=== PATIENT | female | born 1965 | race Caucasian/White ===

== ENCOUNTER → 2017-10-31 | Day surgery (SDC) | payer OTHER ==
--- NOTE | 2017-11-01 13:49 | PATH ---
Surgical Pathology Report Patient Name: BELÉN CHUNG [facility]. Rec. #: [id number] /Age/Gender: 1965 (Age: 51) / F Account: [id number] Location: [facility] Taken: 10/31/2017 Received: 10/31/2017 Reported: 11/01/2017 Physicians: Gerard Jenkins M.D. Specimen(s) Received A: LEFT BREAST SPECIMEN WITH CALCIFICATIONS B: LEFT BREAST SPECIMEN WITHOUT CALCIFICATIONS Clinical History Nonpalpable lesion Mammographic findings: Microcalcification, suspicious Final Diagnosis A. breast, left, with calcifications, stereotactic biopsy: Benign breast tissue showing fibroadenoma with sclerosis, fibrocystic change and associated calcifications. B. breast, left, without calcifications, stereotactic biopsy: Benign breast tissue showing fibroadenoma with sclerosis, fibrocystic change and associated calcifications. Electronically Signed Naomi Wilde M.D. Gross Description A. Received in formalin labeled "left breast with calcifications," are 9 peres-yellow, cylindrical portions of fibroadipose tissue ranging from 0.5-2.4 cm in length and averaging 0.2 cm in diameter. The specimens are entirely submitted in 2 cassettes. B. Received in formalin labeled "left breast without calcifications," are 5 peres-yellow, cylindrical portions of fibroadipose tissue ranging from 0.7-2.4 cm in length and averaging 0.3 cm in diameter. The specimens are submitted in toto in one cassette. Time to formalin fixation: 5 minutes Total formalin fixation time: Approximately 6 hours. 10/31/2017 saudi10/31/2017
== END | disposition home or self-care (01) ==
LOC: FMAMMOTONE 10:52
PROVIDERS: ATTEND Family Medicine
PROC: 0HBU3ZX Excision of Left Breast, Percutaneous Approach, Diagnostic (ICD-10-PCS; principal; 2017-10-31)
DX: D24.2 Benign neoplasm of left breast (principal); R92.1 Mammographic calcification found on diagnostic imaging of breast
CPT/HCPCS: 19081; 87899; 88305-TC; A4648

== ENCOUNTER 2020-04-23 05:28 | Day surgery (SDC) | payer OTHER ==
[2020-04-22 12:53] VITALS: BMI 28.7
[~2020-04-23 05:28] MED LIST: BUPIVACAINE HCL/PF 0.5% (5 MG/ML) 30 ML VIAL IJ ONE; IOHEXOL 180 MG/1 ML ML IJ ONE
[2020-04-23] MEDS ORDERED: TRIAMCINOLONE ACET 40MG/1ML VIAL ONE (07:06)
[2020-04-23] MEDS ORDERED: DEXAMETHASONE SOD PHOSPHATE/PF 10 MG/ML SDV ONE (07:06)
[2020-04-23] MEDS ORDERED: LIDOCAINE HCL/PF 1% SDV 5ML VIAL ONE (07:06)
[2020-04-23] MEDS ORDERED: BUPIVACAINE HCL/PF 0.25% (2.5MG/ML) 10 ML VIAL ONE (07:07)
[2020-04-23] MEDS ORDERED: BUPIVACAINE HCL 50 ML ONE (07:07)
[2020-04-23] MEDS ORDERED: BUPIVACAINE HCL/PF 0.75% 10 ML VIAL ONE (07:08)
[2020-04-23] MEDS ORDERED: BUPIVACAINE HCL/PF 0.5% (5 MG/ML) 30 ML VIAL IJ ONE (08:22)
[2020-04-23] MEDS ORDERED: IOHEXOL 180 MG/1 ML ML IJ ONE (08:22)
[2020-04-23 08:55] VITALS: BP 140/84; PULSE 60; TEMP 98.6
== END 2020-04-23 09:20 | disposition home or self-care (01) ==
LOC: JASU-SURG 05:28
PROVIDERS: ATTEND Pain Medicine Pain Medicine
PROC: BR14YZZ Fluoroscopy of Cervical Facet Joint(s) using Other Contrast (ICD-10-PCS; 2020-04-23)
PROC: 3E0T3BZ Introduction of Anesthetic Agent into Peripheral Nerves and Plexi, Percutaneous Approach (ICD-10-PCS; principal; 2020-04-23 08:00)
DX: M47.812 Spondylosis without myelopathy or radiculopathy, cervical region (principal)
CPT/HCPCS: 76000-TC-FY

== ENCOUNTER 2020-05-13 04:25 | Day surgery (SDC) | payer OTHER ==
[2020-05-10 10:23] VITALS: BMI 28.7
[2020-05-13] MEDS ORDERED: BUPIVACAINE HCL 100 ML ONE (10:34)
[2020-05-13] MEDS ORDERED: PROPOFOL 20 ML ONE ×2 (11:23)
[2020-05-13] MEDS ORDERED: MIDAZOLAM HCL 2 MG/2 ML SINGLE DOSE VIAL ONE (11:23)
[2020-05-13] MEDS ORDERED: SUCCINYLCHOLINE CHLORIDE 200 MG/10 ML SYRINGE ONE (11:23)
[2020-05-13] MEDS ORDERED: ROCURONIUM BROMIDE 50 MG/5 ML SYRINGE ONE (11:23)
[2020-05-13] MEDS ORDERED: ceFAZolin 2 GRAM PREMIX BAG IVPB ONE (11:27)
[2020-05-13] MEDS ORDERED: SODIUM CHLORIDE 0.9% P/F 10 ML VIAL IJ ONE (11:35)
[2020-05-13] MEDS ORDERED: ceFAZolin SODIUM 1 GM VIAL ONE (11:35)
[2020-05-13] MEDS ORDERED: DEXAMETHASONE SOD PHOSPHATE 4 MG/1 ML VIAL ONE (11:35)
[2020-05-13] MEDS ORDERED: HYDROmorphone HCl 2 MG/ML VIAL ONE (11:45)
[2020-05-13] MEDS ORDERED: BUPIVACAINE HCL/PF 0.5% (5 MG/ML) 30 ML VIAL IJ ONE ×2 (11:56→12:28)
[2020-05-13] MEDS ORDERED: KETOROLAC TROMETHAMINE 30 MG/1 ML VIAL ONE (12:24)
[2020-05-13] MEDS ORDERED: GLYCOPYRROLATE 0.2 MG/1 ML VIAL ONE (12:25)
[2020-05-13] MEDS ORDERED: NEOSTIGMINE METHYLSULFATE 0.5 MG/ML - 10 ML MDV ONE (12:25)
[2020-05-13] MEDS ORDERED: METOPROLOL TARTRATE 5 MG/5 ML VIAL ONE (12:30)
[2020-05-13] MEDS ORDERED: PROMETHAZINE HCL 25 MG/1 ML VIAL IVPUSH PRN (12:56)
[2020-05-13] MEDS ORDERED: ONDANSETRON 4 MG/2 ML VIAL IVPUSH PRN (12:56)
[2020-05-13] MEDS ORDERED: LACTATED RINGERS SOLUTION 1,000 ML IV SCH (13:00)
[2020-05-13] MEDS ORDERED: ONDANSETRON 4 MG/2 ML VIAL ONE (14:13)
[2020-05-13 18:10] VITALS: BP 118/68; PULSE 68; TEMP 97.8
== END 2020-05-13 18:11 | disposition home or self-care (01) ==
LOC: JASU-SURG 04:25
PROVIDERS: ATTEND Surgery
PROC: 0FT44ZZ Resection of Gallbladder, Percutaneous Endoscopic Approach (ICD-10-PCS; principal; 2020-05-13 11:00)
DX: K80.10 Calculus of gallbladder with chronic cholecystitis without obstruction (principal)
CPT/HCPCS: 88304-TC; 94760